=== PATIENT | male | born 1945 | race Caucasian/White ===

== ENCOUNTER 2022-11-24 13:21 | Outpatient (CLI) | payer MEDICARE, OTHER ==
--- NOTE | 2022-11-24 15:41 | Ultrasound Report ---
PROCEDURE: Duplex Ext Veins Right INDICATIONS: RIGHT LOWER LEG SWELLING TECHNIQUE: Real-time imaging, as well as color and pulse Doppler interrogation, were performed of the lower extr emity deep veins from the inguinal ligament to the popliteal fossa. COMPARISON: None. FINDINGS: The deep veins are normally compressible, and free of intraluminal thrombus. Color and pu lse Doppler demonstrate normal phasic intraluminal flow. There is normal augmentation response to di stal compression maneuver. IMPRESSION: No deep vein thrombosis of the right lower extremity. Reviewed by: Leta Harrell MD on 11/24/2022 3:40 PM PDT Approved by: Leta Harrell MD on 11/24/2022 3:40 PM PDT Station ID: [id number]
--- NOTE | 2022-11-24 18:50 | Ultrasound Report ---
PROCEDURE: Duplex Lwr Ext Arterial RT INDICATIONS: RIGHT LOWER LEG SWELLING TECHNIQUE: Color and pulse Doppler interrogation was performed of the right lower extremity arterial system, wit h image documentation. COMPARISON: None FINDINGS: Common femoral artery: 125.7 cm/sec, with triphasic flow. Deep femoral artery: 100 cm/sec, with biphasic flow. Proximal superficial femoral artery: 108.5 cm/sec, with triphasic flow. Mid superficial femoral artery: 112.8 cm/sec, with triphasic flow. Distal superficial femoral artery: 139.9 cm/sec, with triphasic flow. Popliteal artery: 115.7 cm/sec, with triphasic flow. Posterior tibial artery: 50 cm/sec, with triphasic flow. Anterior tibial artery/dorsalis pedis: 88.1 cm/sec, with triphasic flow. Pratt-scale imaging description: Mild atheromatous plaque. No focal hemodynamically significant steno sis. IMPRESSION: No focal hemodynamically significant stenosis. Triphasic waveforms throughout. Reviewed by: Leta Harrell MD on 11/24/2022 6:49 PM PDT Approved by: Leta Harrell MD on 11/24/2022 6:49 PM PDT Station ID: [id number]
== END 2022-11-24 13:22 | disposition home or self-care (01) ==
LOC: DI 13:21
PROVIDERS: ATTEND Student in an Organized Health Care Education/Training Program
DX: R60.0 Localized edema (principal)

== ENCOUNTER 2023-01-19 06:53 | Outpatient (CLI) | payer MEDICARE, OTHER ==
--- NOTE | 2023-01-19 15:11 | Ultrasound Report ---
PROCEDURE: Ext Limited Non Vascular INDICATIONS: LUMP RIGHT ANKLE TECHNIQUE: Real-time scanning was performed of the right ankle, with image documentation. COMPARISON: None. FINDINGS: Ultrasound examination over anterior aspect of right ankle at patient's reported area of p alpable lump shows a heterogeneously echogenic and solid appearing nodule in deep soft tissue of ante rior ankle and measures 1.3 x 1.7 x 0.7 cm in size. Mild internal vascularity is seen. IMPRESSION: 1.3 x 1.7 x 0.7 cm solid nodule in anterior right ankle soft tissue at patient's reported area of palpable lump suggestive of soft tissue neoplasm of indeterminant nature. Excisional biopsy of this nodule can be done for more definitive diagnosis. Reviewed by: Demetrio Charles MD on 01/19/2023 3:10 PM PDT Approved by: Demetrio Charles MD on 01/19/2023 3:10 PM PDT Station ID: [id number]
== END 2023-01-19 06:54 | disposition home or self-care (01) ==
LOC: DI 06:53
PROVIDERS: ATTEND Student in an Organized Health Care Education/Training Program
DX: R93.6 Abnormal findings on diagnostic imaging of limbs (principal); R93.89 Abnormal findings on diagnostic imaging of other specified body structures

== ENCOUNTER 2023-05-25 08:53 | Outpatient (CLI) | payer MEDICARE, OTHER ==
--- NOTE | 2023-05-25 11:43 | XRAY Report ---
PROCEDURE: Knee 3V LT INDICATIONS: LEFT KNEE EFFUSION TECHNIQUE: 3 views of the knee(s) were acquired. COMPARISON: None. FINDINGS: Bones: Decreased mineralization. No fractures. Moderate enthesopathy at the distal quadriceps insert ion on the patella. Moderate patellofemoral compartment joint space loss, sclerosis, and small spurs. Mild medial compartment joint space loss. Soft tissues: Small knee joint effusion. There is shrapnel in the soft tissues of the knee, mainly p osterior lateral. There is chondrocalcinosis, most seen in the lateral compartment, faint calcificati on seen in Hoffa's fat pad, and at the distal quadriceps insertion. IMPRESSION: 1. Patellofemoral compartment osteoarthritis. 2. No visible acute fractures given mild demineralization. 3. Chondrocalcinosis and tendinous calcification. 4. Small suprapatellar joint effusion. Reviewed by: Hilaria Haddad MD on 05/25/2023 11:42 AM PST Approved by: Hilaria Haddad MD on 05/25/2023 11:42 AM PST Station ID: [id number]
== END 2023-05-25 08:54 | disposition home or self-care (01) ==
LOC: LAB.N 08:53 → DI.N 08:54
PROVIDERS: ATTEND Physician Assistant Medical
DX: M17.12 Unilateral primary osteoarthritis, left knee (principal); M11.262 Other chondrocalcinosis, left knee; M25.462 Effusion, left knee

== ENCOUNTER 2023-06-04 08:00 | Outpatient (CLI) | payer MEDICARE, OTHER ==
--- NOTE | 2023-06-04 16:28 | XRAY Report ---
PROCEDURE: Knee 2 View LT INDICATIONS: LEFT KNEE PAIN TECHNIQUE: 2 views of the knee(s) were acquired. COMPARISON: X-ray knee 05/25/2023 FINDINGS: Bones: Right knee arthroplasty. Hardware is intact without evidence of hardware fracture or peripros thetic lucency to suggest loosening. Bicompartmental arthritic changes and chondrocalcinosis are note d on the left. No suspicious bony lesions. Soft tissues: No knee joint effusion. Shrapnel is noted within the soft tissues of the left knee. IMPRESSION: Stable interval exam compared to 05/25/2023. No visualized fracture or dislocation. If concern persists , CT is recommended. Reviewed by: Rowan Gupta MD on 06/04/2023 4:27 PM PST Approved by: Rowan Gupta MD on 06/04/2023 4:27 PM PST Station ID: [id number]
== END 2023-06-04 23:59 | disposition home or self-care (01) ==
LOC: DI.WOS 08:00
PROVIDERS: ATTEND Physician Assistant Surgical
DX: M25.462 Effusion, left knee (principal)